=== PATIENT | female | born 1945 | race Caucasian/White ===

== ENCOUNTER 2024-01-20 09:49 | Emergency (ER) | payer BC, OTHER ==
[2024-01-20 10:04] VITALS: BP 146/66; PULSE 94; RESP 16; TEMP 98.5; BMI 27.3
[2024-01-20] MEDS ORDERED: DALBAVANCIN HCL 500 MG VIAL (RESTRICTED TO ID ONLY) IVPB ONE (10:51)
[2024-01-20] MEDS: ACETAMINOPHEN 325 MG TABLET (FP) PO ONE (11:05)
[2024-01-20] MEDS ORDERED: ACETAMINOPHEN 325 MG TABLET (FP) ONE (11:05)
[2024-01-20] MEDS: DALBAVANCIN HCL 1,500 MG in DEXTROSE 5%-WATER - 500 ML IVPB ONE (11:10)
== END 2024-01-20 12:35 | disposition home or self-care (01) ==
LOC: JERFT 09:49 → JER 09:49
DX: L03.116 Cellulitis of left lower limb (principal)
CPT/HCPCS: 99284-25; J0875